=== PATIENT | male | born 1960 | race Caucasian/White ===

== ENCOUNTER 2017-03-20 11:47 | Emergency (ER) | payer MEDICAID ==
[2017-03-20 15:52] LABS: microscopic required? YES; urine erythrocyte 3+ (NEGATIVE)
[2017-03-20 17:03] LABS: BASOPHIL % 0.4 % (0-2); PLATELET COUNT 309 x10^3mcL (130-400)
[2017-03-20 17:08] LABS: RED CELL DISTRIBUTION WIDTH 14.8 % (11.5-14.5)
[2017-03-20 17:14] LABS: CALCIUM 9.2 mg/dL (8.5-10.1); CARBON DIOXIDE 21.1 mmol/L (21-32); CREATININE SERUM 2.8 mg/dL (0.7-1.3); POTASSIUM SERUM 4.3 mmol/L (3.5-5.1)
[2017-03-20 17:19] LABS: ALBUMIN 4.1 g/dL (3.4-5.0); BILIRUBIN TOTAL 0.44 mg/dL (0.20-1.00); TOTAL PROTEIN, SERUM 7.8 g/dL (6.4-8.2)
[2017-03-20 20:09] VITALS: BP 132/103
== END 2017-03-20 20:09 | disposition home or self-care (01) ==
LOC: ED 11:47
PROVIDERS: Emergency Medicine
DX: N30.01 Acute cystitis with hematuria (principal); E11.9 Type 2 diabetes mellitus without complications; Z79.84 Long term (current) use of oral hypoglycemic drugs
CPT/HCPCS: J0696; J1170; J3490

== ENCOUNTER 2017-07-02 13:56 | Emergency (ER) | payer OTHER ==
[~2017-07-02] VITALS: Ht 177.8 cm; Wt 86.2 kg
[2017-07-02 15:37] LABS: BASOPHIL % 0.5 % (0-2); PLATELET COUNT 348 x10^3mcL (130-400); RED CELL DISTRIBUTION WIDTH 13.6 % (11.5-14.5)
[2017-07-02 15:41] LABS: CALCIUM 9.6 mg/dL (8.5-10.1); CREATININE SERUM 1.7 mg/dL (0.7-1.3); POTASSIUM SERUM 4.5 mmol/L (3.5-5.1)
[2017-07-02 15:42] LABS: BILIRUBIN TOTAL 0.3 mg/dL (0.20-1.00)
[2017-07-02 17:07] VITALS: BP 126/78
[2017-07-02 17:15] LABS: UA SPECIFIC GRAVITY 1.015 (1.005-1.035); microscopic required? YES; urine erythrocyte 2+ (NEGATIVE)
== END 2017-07-02 17:08 | disposition home or self-care (01) ==
LOC: ED 13:56
PROVIDERS: Emergency Medicine
DX: R55 Syncope and collapse (principal); E11.9 Type 2 diabetes mellitus without complications
CPT/HCPCS: J1885; J3010; J7030

== ENCOUNTER 2017-11-27 17:40 | Emergency (ER) | payer OTHER ==
[~2017-11-27] VITALS: Ht 180.3 cm; Wt 72.6 kg
[2017-11-27 17:46] VITALS: Ht 180.3 cm; Wt 72.6 kg
[2017-11-27 18:15] LABS: PLATELET COUNT 179 x10^3mcL (130-400)
[2017-11-27 18:22] LABS: RED CELL DISTRIBUTION WIDTH 15.6 % (11.5-14.5)
[2017-11-27 18:28] LABS: CALCIUM 8.9 mg/dL (8.5-10.1); CARBON DIOXIDE 20.9 mmol/L (21-32); CREATININE SERUM 1.7 mg/dL (0.7-1.3); POTASSIUM SERUM 4.2 mmol/L (3.5-5.1)
[2017-11-27 18:32] LABS: BILIRUBIN TOTAL 0.56 mg/dL (0.20-1.00); TOTAL PROTEIN, SERUM 7.2 g/dL (6.4-8.2)
[2017-11-27 18:33] LABS: ALBUMIN 2.7 g/dL (3.4-5.0)
[2017-11-27 18:45] LABS: microscopic required? YES; urine erythrocyte 3+ (NEGATIVE)
[2017-11-27 18:58] LABS: BAND NEUTROPHIL 4 % (0-10); METAMYELOCTE 2 % (0-2); MONOCYTE 1 % (0-7); SEGMENTED NEUTROPHILS 90 % (37-75)
[2017-11-27 19:00] LABS: PLATELET MORPHOLOGY FEW LARGE PLATELETS; rbc morphology (normal/abnorm) NORMAL (NORMAL)
[2017-11-27 19:02] LABS: AMPHETAMINE QUAL UR NONE DETECTED (NEG <=1000)
[2017-11-27 19:42] VITALS: BP 121/74
== END 2017-11-27 19:42 | disposition home or self-care (01) ==
LOC: ED 17:40
PROVIDERS: Emergency Medicine
DX: R53.1 Weakness (principal); E11.9 Type 2 diabetes mellitus without complications
CPT/HCPCS: J2060; J2405; J7030

== ENCOUNTER 2018-09-11 23:53 | Inpatient (IN) | payer MEDICAID ==
[~2018-09-11] VITALS: Ht 177.8 cm; Wt 78.2 kg
[2018-09-12] VITALS (11 sets, daily range): BP systolic 114–158; BP diastolic 58–96; Ht 177.8 cm; Wt 78.2 kg
[2018-09-12 01:58] LABS: RED CELL DISTRIBUTION WIDTH 16.4 % (11.5-14.5)
[2018-09-12 02:01] LABS: PLATELET COUNT 624 x10^3mcL (130-400)
[2018-09-12 02:09] LABS: BAND NEUTROPHIL 2 % (0-10); MONOCYTE 5 % (0-7); SEGMENTED NEUTROPHILS 87 % (37-75)
[2018-09-12 02:13] LABS: acanthocyte (spur cell) 3+; rbc morphology (normal/abnorm) ABNORMAL (NORMAL)
[2018-09-12 02:14] LABS: PLATELET MORPHOLOGY PLATELETS INCREASED
[2018-09-12 03:04] LABS: AST/SGOT 14 U/L (15-37); BILIRUBIN TOTAL 0.3 mg/dL (0.20-1.00)
[2018-09-12 03:06] LABS: ALBUMIN 2.7 g/dL (3.4-5.0)
[2018-09-12 03:28] LABS: ALKALINE PHOSPHATASE 62 U/L (46-116); ALT/SGPT 6 U/L (16-63); CALCIUM 8.4 mg/dL (8.5-10.1); CARBON DIOXIDE 11.5 mmol/L (21-32); CHLORIDE SERUM 96 mmol/L (98-107); FREE T4 0.53 ng/dL (0.76-1.46); GLUCOSE SERUM 91 mg/dL (74-106); LIPASE 658 IU/L (73-393); SODIUM SERUM 133 mmol/L (136-145)
[2018-09-12 03:29] LABS: GFR1 3 mL/min
[2018-09-12 03:31] LABS: POTASSIUM SERUM 8.7 mmol/L (3.5-5.1)
[2018-09-12 03:32] LABS: CREATININE SERUM 19.9 mg/dL (0.7-1.3)
[2018-09-12 06:30] LABS: MAGNESIUM 2.9 mg/dL (1.8-2.4)
[2018-09-12 06:32] LABS: CHOLESTEROL/HDL RATIO 4.1
[2018-09-12 06:34] LABS: PHOSPHOROUS 12.2 mg/dL (2.5-4.9)
[2018-09-12 08:09] LABS: UA SPECIFIC GRAVITY 1.015 (1.005-1.035); microscopic required? YES; urine erythrocyte 3+ (NEGATIVE)
[2018-09-12] MEDS ORDERED: CIPRO250 MG (08:51)
[2018-09-12] MEDS ORDERED: LORAZEPAM1 MG (08:51)
[2018-09-12] MEDS ORDERED: PROMETHAZI6.25 MG/5 (08:51)
[2018-09-12] MEDS ORDERED: VIC (08:51)
[2018-09-12] MEDS ORDERED: ZOF20I (08:52)
[2018-09-12 09:19] LABS: AMPHETAMINE QUAL UR NONE DETECTED (See below)
[2018-09-12 11:23] LABS: CALCIUM 7.7 mg/dL (8.5-10.1); CARBON DIOXIDE 12.4 mmol/L (21-32)
[2018-09-12 11:26] LABS: POTASSIUM SERUM 7.4 mmol/L (3.5-5.1)
[2018-09-12 11:44] LABS: PLATELET COUNT 510 x10^3mcL (130-400); RED CELL DISTRIBUTION WIDTH 17.5 % (11.5-14.5)
[2018-09-12 12:42] LABS: MONOCYTE 4 % (0-7); SEGMENTED NEUTROPHILS 80 % (37-75)
[2018-09-12 12:43] LABS: BAND NEUTROPHIL 4 % (0-10); METAMYELOCTE 5 % (0-2); rbc morphology (normal/abnorm) ABNORMAL (NORMAL)
[2018-09-12 12:44] LABS: acanthocyte (spur cell) 1+
[2018-09-12 12:45] LABS: PLATELET MORPHOLOGY PLATELETS INCREASED
[2018-09-13 03:41] VITALS: BP 115/68
[2018-09-13 11:09] VITALS: BP 103/84
[2018-09-13 16:26] VITALS: BP 124/79
== END 2018-09-14 05:42 | disposition expired | DRG 720 ==
LOC: ED 23:53 → DU 09-12 05:01 → IC 09-12 05:01 → MU 09-13 07:15 → DU 09-13 09:31
PROVIDERS: Emergency Medicine; ADMIT Internal Medicine
PROC: 5A1935Z Respiratory Ventilation, Less than 24 Consecutive Hours (ICD-10-PCS; principal; 2018-09-12)
PROC: 0BH17EZ Insertion of Endotracheal Airway into Trachea, Via Natural or Artificial Opening (ICD-10-PCS; 2018-09-12)
PROC: 30233N1 Transfusion of Nonautologous Red Blood Cells into Peripheral Vein, Percutaneous Approach (ICD-10-PCS; 2018-09-12)
DX: A41.9 Sepsis, unspecified organism (principal); J96.01 Acute respiratory failure with hypoxia; N17.0 Acute kidney failure with tubular necrosis; G93.41 Metabolic encephalopathy; E43 Unspecified severe protein-calorie malnutrition; K85.90 Acute pancreatitis without necrosis or infection, unspecified; C79.9 Secondary malignant neoplasm of unspecified site; E87.2 Acidosis; E87.5 Hyperkalemia; E83.39 Other disorders of phosphorus metabolism; E83.41 Hypermagnesemia; C67.9 Malignant neoplasm of bladder, unspecified; N39.0 Urinary tract infection, site not specified; E03.9 Hypothyroidism, unspecified; Z68.22 Body mass index [BMI] 22.0-22.9, adult; Z92.21 Personal history of antineoplastic chemotherapy; Z51.5 Encounter for palliative care; Z66 Do not resuscitate
CPT/HCPCS: 82962; 83880; 84439; 87804; A4628; G0480; J0610; J0696; J1200; J1630; J1815; J2060; J2270; J2543; J2704; J3010; J3370; J3490; J7030; J7050; J7120; P9016; Q0092